=== PATIENT | female | born 1990 | race Caucasian/White ===

== ENCOUNTER → 2017-07-11 | Outpatient (REF) | payer MEDICAID ==
[~2017-07-11] MED LIST: COLA100C5 PO; IBUP200C10 PO; TYLE167L PO
== END ==
LOC: M LAB REF 13:11
PROVIDERS: ATTEND Specialist
DX: Z12.4 Encounter for screening for malignant neoplasm of cervix (principal)

== ENCOUNTER → 2020-02-28 | Outpatient (REF) | payer OTHER ==
[~2020-02-28] MED LIST changes: -IBUP200C10 PO; +IBUP200C25 PO
[2020-02-28 12:46] LABS: BASO # 0.1 10^3/uL (0.0-0.2); BASO % 0.4 % (0.0-1.0); EOS # 0.3 10^3/uL (0.0-0.5); EOS % 2.5 % (0.0-3.0); HEMATOCRIT 43.7 % (36.0-47.0); HEMOGLOBIN 14.6 g/dl (12.0-15.5); LYMPH # 2.5 10^3/uL (1.5-5.0); LYMPH % 19.8 % (24.0-44.0); MEAN CORPUSCULAR HGB CONC 33.4 g/dl (32.0-36.5); MEAN CORPUSCULAR VOLUME 89.9 fl (80.0-96.0); MONO # 0.5 10^3/uL (0.0-0.8); NEUTROPHILS # 9.1 10^3/uL (1.5-8.5); NEUTROPHILS % 72.9 % (36.0-66.0); RED BLOOD COUNT 4.86 10^6/uL (4.00-5.40); WHITE BLOOD COUNT 12.4 10^3/uL (4.0-10.0)
[2020-02-28 12:55] LABS: PERCENT SATURATION 15.8 % (13.2-45.0)
[2020-02-28 13:00] LABS: FOLATE 15.4 NG/ML
[2020-02-28 13:28] LABS: PLATELET COUNT, AUTOMATED 25 10^3/uL (150-450)
== END ==
LOC: M LAB REF 12:12
PROVIDERS: ATTEND Nurse Practitioner Family
DX: D69.6 Thrombocytopenia, unspecified (principal)

== ENCOUNTER → 2020-03-02 | Outpatient (CLI) | payer OTHER ==
[~2020-03-02] MED LIST changes: +CLAR10CA3 PO; +DECA4TAB PO; +FLUT1INH2 INH; +MICR1TAB16 PO
[2020-03-02 18:15] LABS: BASO # 0.1 10^3/uL (0.0-0.2); BASO % 0.5 % (0.0-1.0); EOS # 0.2 10^3/uL (0.0-0.5); EOS % 1.9 % (0.0-3.0); HEMATOCRIT 42.7 % (36.0-47.0); HEMOGLOBIN 14.2 g/dl (12.0-15.5); LYMPH % 19.6 % (24.0-44.0); MEAN CORPUSCULAR HEMOGLOBIN 29.5 pg (27.0-33.0); MEAN CORPUSCULAR HGB CONC 33.3 g/dl (32.0-36.5); MEAN CORPUSCULAR VOLUME 88.8 fl (80.0-96.0); MONO # 0.5 10^3/uL (0.0-0.8); MONO % 4.5 % (0.0-5.0); NEUTROPHILS # 7.6 10^3/uL (1.5-8.5); NEUTROPHILS % 73.1 % (36.0-66.0); RED BLOOD COUNT 4.81 10^6/uL (4.00-5.40); WHITE BLOOD COUNT 10.3 10^3/uL (4.0-10.0)
[2020-03-02 18:29] LABS: PLATELET COUNT, AUTOMATED 26 10^3/uL (150-450)
[2020-03-02 18:42] LABS: FERRITIN 69 NG/ML (8-252); IRON (FE) 76 UG/DL (50-170); LDH LACTATE DEHYDROGENASE 196 U/L (84-246); PERCENT SATURATION 17.7 % (13.2-45.0); TOTAL IRON BINDING CAPACITY 429 UG/DL (250-450)
[2020-03-03 09:27] LABS: HEPATITIS B SURFACE ANTIGEN NEGATIVE (NEGATIVE)
[2020-03-03 09:53] LABS: HEPATITIS C VIRUS ABY INDEX 0.1 INDEX (<0.8)
[2020-03-03 09:54] LABS: HEPATITIS B CORE ANTIBODY IGM NEGATIVE (NEGATIVE)
[2020-03-03 09:56] LABS: HEPATITIS A ANTIBODY IGM NEGATIVE (NEGATIVE); HIV 1&2 SCREEN CENTAUR NEGATIVE (NEGATIVE)
== END ==
LOC: M LAB 15:39
PROVIDERS: ATTEND Internal Medicine Hematology & Oncology
DX: D69.6 Thrombocytopenia, unspecified (principal)

== ENCOUNTER → 2020-03-21 | Outpatient (CLI) | payer OTHER ==
[~2020-03-21] MED LIST changes: +ESCI10TA2 PO
[2020-03-21 17:07] LABS: BASO # 0.1 10^3/uL (0.0-0.2); BASO % 0.7 % (0.0-1.0); EOS # 0.2 10^3/uL (0.0-0.5); EOS % 3.2 % (0.0-3.0); HEMATOCRIT 40.1 % (36.0-47.0); HEMOGLOBIN 13.6 g/dl (12.0-15.5); LYMPH # 2.8 10^3/uL (1.5-5.0); LYMPH % 38.1 % (24.0-44.0); MEAN CORPUSCULAR HEMOGLOBIN 30.7 pg (27.0-33.0); MEAN CORPUSCULAR HGB CONC 33.9 g/dl (32.0-36.5); MEAN CORPUSCULAR VOLUME 90.5 fl (80.0-96.0); MONO # 0.6 10^3/uL (0.0-0.8); MONO % 7.4 % (0.0-5.0); NEUTROPHILS # 3.7 10^3/uL (1.5-8.5); NEUTROPHILS % 50.3 % (36.0-66.0); PLATELET COUNT, AUTOMATED 169 10^3/uL (150-450); RED BLOOD COUNT 4.43 10^6/uL (4.00-5.40); WHITE BLOOD COUNT 7.4 10^3/uL (4.0-10.0)
[2020-03-21 17:33] LABS: BLOOD UREA NITROGEN 11 MG/DL (7-18); CALCIUM LEVEL 9.1 MG/DL (8.5-10.1); CARBON DIOXIDE LEVEL 30 MEQ/L (21-32); CHLORIDE LEVEL 105 MEQ/L (98-107); CREATININE FOR GFR 0.77 MG/DL (0.55-1.30); GLOMERULAR FILTRATION RATE > 60.0 (>60); GLUCOSE, FASTING 89 MG/DL (70-100); POTASSIUM SERUM 4.1 MEQ/L (3.5-5.1); SODIUM LEVEL 140 MEQ/L (136-145)
== END ==
LOC: M LAB 16:26
PROVIDERS: ATTEND Internal Medicine Hematology & Oncology
DX: D69.3 Immune thrombocytopenic purpura (principal)

== ENCOUNTER → 2020-04-10 | Outpatient (CLI) | payer OTHER ==
[2020-04-10 17:20] LABS: BASO % 0.4 % (0.0-1.0); EOS # 0.2 10^3/uL (0.0-0.5); EOS % 2.7 % (0.0-3.0); HEMOGLOBIN 13.4 g/dl (12.0-15.5); LYMPH # 2.2 10^3/uL (1.5-5.0); LYMPH % 26.8 % (24.0-44.0); MEAN CORPUSCULAR HEMOGLOBIN 29.7 pg (27.0-33.0); MEAN CORPUSCULAR HGB CONC 32.7 g/dl (32.0-36.5); MEAN CORPUSCULAR VOLUME 90.9 fl (80.0-96.0); MONO # 0.6 10^3/uL (0.0-0.8); NEUTROPHILS # 5.2 10^3/uL (1.5-8.5); NEUTROPHILS % 62.7 % (36.0-66.0); RED BLOOD COUNT 4.51 10^6/uL (4.00-5.40); WHITE BLOOD COUNT 8.3 10^3/uL (4.0-10.0)
[2020-04-10 17:22] LABS: PLATELET COUNT, AUTOMATED 89 10^3/uL (150-450)
== END ==
LOC: M LAB 15:07
PROVIDERS: ATTEND Internal Medicine Hematology & Oncology
DX: D69.3 Immune thrombocytopenic purpura (principal)

== ENCOUNTER → 2020-04-28 | Outpatient (CLI) | payer OTHER ==
[2020-04-28 09:54] LABS: BASO % 0.3 % (0.0-1.0); EOS # 0.3 10^3/uL (0.0-0.5); EOS % 4.7 % (0.0-3.0); HEMATOCRIT 41.6 % (36.0-47.0); HEMOGLOBIN 13.6 g/dl (12.0-15.5); LYMPH % 32.7 % (24.0-44.0); MEAN CORPUSCULAR HEMOGLOBIN 29.6 pg (27.0-33.0); MEAN CORPUSCULAR HGB CONC 32.7 g/dl (32.0-36.5); MEAN CORPUSCULAR VOLUME 90.4 fl (80.0-96.0); MONO # 0.3 10^3/uL (0.0-0.8); MONO % 5.7 % (0.0-5.0); NEUTROPHILS # 3.4 10^3/uL (1.5-8.5); NEUTROPHILS % 56.3 % (36.0-66.0)
[2020-04-28 10:02] LABS: PLATELET COUNT, AUTOMATED 28 10^3/uL (150-450)
== END ==
LOC: M LAB 08:36
PROVIDERS: ATTEND Internal Medicine Hematology & Oncology
DX: D69.3 Immune thrombocytopenic purpura (principal)

== ENCOUNTER 2020-07-27 06:58 | Outpatient (CLI) | payer OTHER ==
[~2020-07-27] VITALS: Ht 165 cm; Wt 102.0 kg
[2020-07-27 07:00] VITALS: BP 136/80
[2020-07-27] MEDS ORDERED: IMMUNE GLOBULIN 10% 80 GM in IV 1 EA IV ONE (07:00)
[2020-07-27] MEDS ORDERED: IMMUNE GLOBULIN 10% 20 GM in IV 1 EA IV ONE (07:00)
== END 2020-07-27 08:20 | disposition home or self-care (01) ==
LOC: M INFU 06:58
PROVIDERS: ATTEND Internal Medicine Medical Oncology
DX: Z53.9 Procedure and treatment not carried out, unspecified reason (principal)

== ENCOUNTER → 2020-09-05 | Outpatient (CLI) | payer OTHER ==
--- NOTE | 2020-09-05 09:58 | REP ---
INDICATION: R/O SPLEMEGOLY MAIN REG. COMPARISON: None. TECHNIQUE: Left upper quadrant abdominal sonography. FINDINGS: Scanning through the left upper quadrant of the abdomen demonstrates a normal size homogeneous spleen. No focal splenic lesion is seen. Its greatest diameter is 8.9 cm. There is no evidence of ascites. The left kidney shows normal renal cortical echogenicity. No hydronephrosis, cyst or mass is seen. Left renal dimensions are 10.4 x 5.1 x 5.0 cm. IMPRESSION: Normal left upper quadrant sonogram. <Electronically signed by Modesto Guerrier > 09/05/20 0918
== END ==
LOC: M RAD 08:12
PROVIDERS: ATTEND Internal Medicine Medical Oncology
DX: D69.3 Immune thrombocytopenic purpura (principal)

== ENCOUNTER → 2020-09-11 | Outpatient (REF) | payer OTHER | LOC: M LAB REF 13:47 | PROVIDERS: ATTEND Physician Assistant | DX: J86.9 Pyothorax without fistula (principal) ==

== ENCOUNTER → 2021-01-12 | Outpatient (CLI) | payer OTHER ==
[~2021-01-12] MED LIST changes: +ESCI10TA16 PO; -ESCI10TA2 PO
[2021-01-12 17:49] LABS: BASO % 0.3 % (0.0-1.0); EOS # 0.2 10^3/uL (0.0-0.5); EOS % 1.6 % (0.0-3.0); HEMATOCRIT 42.3 % (36.0-47.0); LYMPH # 3.3 10^3/uL (1.5-5.0); LYMPH % 35.8 % (24.0-44.0); MEAN CORPUSCULAR HEMOGLOBIN 29.4 pg (27.0-33.0); MEAN CORPUSCULAR HGB CONC 33.1 g/dl (32.0-36.5); MEAN CORPUSCULAR VOLUME 88.9 fl (80.0-96.0); MONO # 0.6 10^3/uL (0.0-0.8); MONO % 6.2 % (2.0-8.0); NEUTROPHILS # 5.1 10^3/uL (1.5-8.5); NEUTROPHILS % 55.8 % (36.0-66.0); PLATELET COUNT, AUTOMATED 335 10^3/uL (150-450); RED BLOOD COUNT 4.76 10^6/uL (4.00-5.40); WHITE BLOOD COUNT 9.2 10^3/uL (4.0-10.0)
[2021-01-12 18:06] LABS: ALBUMIN 3.6 GM/DL (3.2-5.2); ALT/SGPT 20 U/L (12-78); BILIRUBIN,TOTAL 0.8 MG/DL (0.2-1.0); BLOOD UREA NITROGEN 11 MG/DL (7-18); CALCIUM LEVEL 9.4 MG/DL (8.5-10.1); CARBON DIOXIDE LEVEL 30 MEQ/L (21-32); CHLORIDE LEVEL 104 MEQ/L (98-107); CREATININE FOR GFR 0.92 MG/DL (0.55-1.30); GLOMERULAR FILTRATION RATE > 60.0 (>60); GLUCOSE, FASTING 126 MG/DL (70-100); POTASSIUM SERUM 3.8 MEQ/L (3.5-5.1); SODIUM LEVEL 139 MEQ/L (136-145); TOTAL PROTEIN 7.1 GM/DL (6.4-8.2)
== END ==
LOC: M LAB 17:11
PROVIDERS: ATTEND Internal Medicine Medical Oncology
DX: D69.3 Immune thrombocytopenic purpura (principal)

== ENCOUNTER → 2022-07-10 | Outpatient (CLI) | payer OTHER ==
[~2022-07-10] MED LIST changes: +LEXA1TAB PO
== END ==
LOC: M WHC 13:11
PROVIDERS: ATTEND Nurse Practitioner Adult Health
DX: D25.9 Leiomyoma of uterus, unspecified (principal)

== ENCOUNTER → 2023-03-23 | Outpatient (CLI) | payer OTHER, MEDICAID ==
[~2023-03-23] MED LIST changes: +BUPR150T12; -MICR1TAB16 PO; +NORE1TAB86 PO; +TRUL0.5I
[2023-03-23 09:53] LABS: HEMATOCRIT 39.2 % (36.0-47.0); HEMOGLOBIN 12.9 g/dl (12.0-15.5); MEAN CORPUSCULAR HEMOGLOBIN 29.1 pg (27.0-33.0); MEAN CORPUSCULAR HGB CONC 32.9 g/dl (32.0-36.5); MEAN CORPUSCULAR VOLUME 88.5 fl (80.0-96.0); PLATELET COUNT, AUTOMATED 247 10^3/uL (150-450); RED BLOOD COUNT 4.43 10^6/uL (4.00-5.40)
[2023-03-23 10:19] LABS: ALBUMIN 3.5 G/DL (3.2-5.2); ALKALINE PHOSPHATASE 66 U/L (46-116); ALT/SGPT 16 U/L (7.0-40); AST/SGOT 18 U/L (<34); BILIRUBIN,TOTAL 0.9 MG/DL (0.3-1.2); BLOOD UREA NITROGEN 12 MG/DL (9-23); CALCIUM LEVEL 8.4 MG/DL (8.5-10.1); CARBON DIOXIDE LEVEL 25 MMOL/L (20-31); CHLORIDE LEVEL 105 MMOL/L (98-107); CREATININE FOR GFR 0.92 MG/DL (0.55-1.30); GLOMERULAR FILTRATION RATE > 60.0 (>60); GLUCOSE, FASTING 105 MG/DL (60-100); POTASSIUM SERUM 4.1 MMOL/L (3.5-5.1); SODIUM LEVEL 137 MMOL/L (136-145); TOTAL PROTEIN 6.5 G/DL (5.7-8.2)
== END ==
LOC: M LAB 09:28
PROVIDERS: ATTEND Internal Medicine Medical Oncology
DX: D69.3 Immune thrombocytopenic purpura (principal)

== ENCOUNTER → 2024-03-10 | Outpatient (REF) | payer OTHER, MEDICAID ==
[2024-03-10 20:25] LABS: FOLLICLE STIMULATING HORMONE 6.7 mIU/ML
[2024-03-10 20:26] LABS: LUTEINIZING HORMONE 6.5 mIU/ML
== END ==
LOC: M LAB REF 16:15
PROVIDERS: ATTEND Nurse Practitioner Adult Health
DX: N92.6 Irregular menstruation, unspecified (principal)

== ENCOUNTER 2024-07-15 11:45 | Emergency (ER) | payer MEDICAID, OTHER ==
[~2024-07-15] VITALS: Ht 165.1 cm; Wt 115.2 kg
[~2024-07-15 11:45] MED LIST changes: +NORE-30 PO; -NORE1TAB86 PO
[2024-07-15 14:19] VITALS: BP 140/88; TEMP 98.3; O2SAT 99
[2024-07-15] MEDS ORDERED: LIDO5DIS41 TD (14:26)
[2024-07-15] MEDS ORDERED: DICL75TA PO (14:26)
[2024-07-15] MEDS ORDERED: CYCL-707 PO (14:26)
== END 2024-07-15 14:38 | disposition home or self-care (01) ==
LOC: M ED 11:45
DX: M54.42 Lumbago with sciatica, left side (principal); J45.909 Unspecified asthma, uncomplicated; F41.9 Anxiety disorder, unspecified; F12.10 Cannabis abuse, uncomplicated; F10.10 Alcohol abuse, uncomplicated; Z79.899 Other long term (current) drug therapy

== ENCOUNTER → 2025-03-23 | Outpatient (REF) | payer OTHER, MEDICAID ==
[~2025-03-23] MED LIST changes: +CYCL-707 PO; +DICL75TA PO; +LIDO1ADH93 TD
== END ==
LOC: M LAB REF 14:17
PROVIDERS: ATTEND Physician Assistant Medical
DX: R10.12 Left upper quadrant pain (principal)

== ENCOUNTER → 2025-06-13 | Outpatient (CLI) | payer OTHER ==
[~2025-06-13] MED LIST changes: +E-Z-GAS II EFFERVESCENT PACKET (SODIUM BICARB./CITRIC ACID/SIMETHICONE) As Ordered ONE; +E-Z-HD 98% w/w 340 GM SUSP BTL As Ordered ONE; +E-Z-PAQUE 96% w/w SUSP 176 GM BTL As Ordered ONE
== END ==
LOC: M RAD 10:52
PROVIDERS: ATTEND Nurse Practitioner Adult Health
DX: R10.9 Unspecified abdominal pain (principal)